=== PATIENT | female | born 1970 | race Caucasian/White ===

== ENCOUNTER 2019-06-13 12:34 | Emergency (ER) | payer SELFPAY ==
--- NOTE | 2019-06-13 12:55 | ER Document Report ---
ED Medical Screen (RME) - General Chief Complaint: Headache Stated Complaint: DIZZINESS, HEADACHE Time Seen by Provider: 06/13/19 12:50 Mode of Arrival: Ambulatory Information source: Patient Notes: 49-year-old female presented to ED for complaint of a headache to the back and the left side teeth hurt face hurts lightheaded flutters behind her eyes and feel weird. She states she has had a stroke in the past in 2012. She states she does have some left arm tingling as well. He states her past stroke was a hemorrhagic stroke. She states she did not require surgery. She states she had 2 TIAs and a stroke within a period of a month and a half. She also has elevated blood pressure and takes blood pressure medicine. 189/101 at home 144/84 in the emergency. Patient is alert oriented respirations regular nonlabored speaking in full sentences no facial droop noted. I have greeted and performed a rapid initial assessment of this patient. A comprehensive ED assessment and evaluation of the patient, analysis of test results and completion of medical decision making process will be conducted by an additional ED providers. Physical Exam - Vital signs Vitals: Temp Pulse Resp BP Pulse Ox 98.1 F 86 18 144/84 H 99 06/13/19 12:36 06/13/19 12:36 06/13/19 12:36 06/13/19 12:36 06/13/19 12:36 Course - Vital Signs Vital signs: Temp Pulse Resp BP Pulse Ox 98.1 F 86 18 144/84 H 99 06/13/19 12:36 06/13/19 12:36 06/13/19 12:36 06/13/19 12:36 06/13/19 12:36
--- NOTE | 2019-06-13 13:30 | RADIOLOGY REPORT (SQ) ---
EXAM DESCRIPTION: CT HEAD WITHOUT COMPLETED DATE/TIME: 06/13/2019 1:20 pm REASON FOR STUDY: head ache previous stroke COMPARISON: None. TECHNIQUE: Axial images acquired through the brain without intravenous contrast. Images reviewed wi th bone, brain and subdural windows. Additional sagittal and coronal reconstructions were generated. Images stored on PACS. All CT scanners at this facility use dose modulation, iterative reconstruction, and/or weight based d osing when appropriate to reduce radiation dose to as low as reasonably achievable (ALARA). [facility]: Dose Right [facility]: CareDose [facility]: Dose Right [facility]: Teradose 4D [facility]: Smart CellScape RADIATION DOSE: CT Rad equipment meets quality standard of care and radiation dose reduction techniq ues were employed. CTDIvol: 53.2 mGy. DLP: 991 mGy-cm. mGy. LIMITATIONS: None. FINDINGS: VENTRICLES: Normal size and contour. CEREBRUM: No masses. No hemorrhage. No midline shift. No evidence for acute infarction. Normal gra y/white matter differentiation. No areas of low density in the white matter. CEREBELLUM: No masses. No hemorrhage. No alteration of density. No evidence for acute infarction. EXTRAAXIAL SPACES: No fluid collections. No masses. ORBITS AND GLOBE: No intra- or extraconal masses. Normal contour of globe without masses. CALVARIUM: No fracture. PARANASAL SINUSES: No fluid or mucosal thickening. SOFT TISSUES: Left posterior scalp nodule. OTHER: No other significant finding. IMPRESSION: NORMAL BRAIN CT WITHOUT CONTRAST. EVIDENCE OF ACUTE STROKE: NO. COMMENT: Quality ID # [id number]: Final reports with documentation of one or more dose reduction techniques (e.g., Automated exposure control, adjustment of the mA and/or kV according to patient size, use of iterative reconstruction technique) TECHNICAL DOCUMENTATION: JOB ID: [id number] [employer]- All Rights Reserved Reading location - IP/workstation name: [email or web address]
[2019-06-13 13:33] LABS: ABSOLUTE MONOCYTES (AUTO) 0.2 10^3/uL (0.1-1.4); ABSOLUTE NEUT (AUTO) 2.8 10^3/uL (1.7-8.2); BASOPHILS % (AUTO) 0.6 % (0-2); EOSINOPHILS % (AUTO) 0.9 % (0-6); HEMATOCRIT 37.3 % (36.0-47.0); HEMOGLOBIN 12.6 g/dL (12.0-15.5); LYMPHOCYTES % (AUTO) 24.8 % (13-45); MEAN CORPUSCULAR HEMOGLOBIN 30.3 pg (27.0-33.4); MEAN CORPUSCULAR HGB CONC 33.7 g/dL (32.0-36.0); MEAN CORPUSCULAR VOLUME 90 fl (80-97); MONOCYTES % (AUTO) 5.9 % (3-13); PLATELET COUNT 306 10^3/uL (150-450); RED BLOOD COUNT 4.14 10^6/uL (3.72-5.28); RED CELL DISTRIBUTION WIDTH 14.5 % (11.5-14.0); SEGMENTED NEUTROPHILS % (AUTO) 67.8 % (42-78); TOTAL CELLS COUNTED % (AUTO) 100 %; WHITE BLOOD COUNT 4.1 10^3/uL (4.0-10.5)
[2019-06-13 13:39] LABS: PROTHROMBIN TIME 13.2 SEC (11.4-15.4)
[2019-06-13 13:40] LABS: PARTIAL THROMBOPLASTIN TIME 29.3 SEC (23.5-35.8)
[2019-06-13 13:52] LABS: ALBUMIN 4.5 g/dL (3.5-5.0); ALKALINE PHOSPHATASE 99 U/L (38-126); ANION GAP 8 (5-19); ASPARTATE AMINO TRANSFERASE 40 U/L (14-36); BILIRUBIN,DIRECT 0.2 mg/dL (0.0-0.4); BILIRUBIN,TOTAL 0.5 mg/dL (0.2-1.3); BLOOD UREA NITROGEN 11 mg/dL (7-20); CALCIUM 9.6 mg/dL (8.4-10.2); CARBON DIOXIDE 28 mmol/L (22-30); CHLORIDE 103 mmol/L (98-107); GLUCOSE 97 mg/dL (75-110); POTASSIUM 4.2 mmol/L (3.6-5.0); TOTAL PROTEIN 8.3 g/dL (6.3-8.2)
--- NOTE | 2019-06-13 15:42 | ER Document Report ---
ED General - General Chief Complaint: Headache Stated Complaint: DIZZINESS, HEADACHE Time Seen by Provider: 06/13/19 12:50 Mode of Arrival: Ambulatory - [facility] Notes: Patient is a 49-year-old female with history of TIA, CVA, hypertension who presents complaining of having a mild posterior headache that began yesterday, not constant, with elevated blood pressure 180s systolic over 100s diastolic prior to arrival. Patient states that she did have some spots in her vision at that time. Patient had this checked at the pharmacy electronic blood pressure cuff. Patient has been having nasal congestion and discharge as well as sinus congestion and is not sure if this is related. Patient states that she felt a little anxious when her blood pressure was elevated and she felt a very light twinge to the left arm, but no numbness associated. Patient states that quickly resolved. Patient states that she currently is feeling much better and her headache is "barely there." She has been taking Motrin today. This is not the worst headache of her life and did not start as a thunderclap. She takes a baby aspirin daily. Patient states that she has been ambulating since then without any difficulties. Patient states that this did not feel like a TIA or CVA that she has experienced in the past. She did take her blood pressure medicine today. Denies any fever, head injury, neck pain, changes in sp eech/mentation/hearing, sore throat, chest pain, palpitations, syncope, cough, shortness of breath, wheeze, dyspnea, abdominal pain, nausea/vomiting/diarrhea, urinary retention, dysuria, hematuria, loss of control of bowel or bladder, numbness/tingling, saddle anesthesia, muscle paralysis/weakness, or rash. - Related Data Home Medications: 81 mg Aspirin. Losartan. Michelle. Protonix. Lorazepam PRN Past Medical History - General Information source: Patient - Social History Smoking Status: Current Every Day Smoker Frequency of alcohol use: Social Drug Abuse: None Family History: Reviewed & Not Pertinent Patient has suicidal ideation: No Patient has homicidal ideation: No - Past Medical History Cardiac Medical History: Reports: Hx Hypertension GI Medical History: Reports: Hx Gastroesophageal Reflux Disease Past Surgical History: Reports: Hx Gynecologic Surgery, Hx Orthopedic Surgery - L knee Review of Systems - Review of Systems -: Yes All other systems reviewed and negative Physical Exam - Vital signs Vitals: Temp Pulse Resp BP Pulse Ox 98.1 F 86 18 144/84 H 99 06/13/19 12:36 06/13/19 12:36 06/13/19 12:36 06/13/19 12:36 06/13/19 12:36 - Notes Notes: PHYSICAL EXAMINATION: GENERAL: Well-appearing, well-nourished and in no acute distress. A&Ox4. Answers questions appropriately. HEAD: Atraumatic, normocephalic. Non-tender. EYES: Pupils equal round and reactive to light, extraocular movements intact, sclera anicteric, conjunctiva are normal. No nystagmus. vis patel intact. ENT: EAC clear b/l. TM's intact b/l without erythema, fluid, or perforation. Nares patent and without discharge. oropharynx clear without exudates. No tonsilar hypertrophy or erythema. Moist mucous membranes. + mild b/l maxillary sinus tenderness. No dental tenderness. No tongue protrusion. NECK: Normal range of motion, supple without lymphadenopathy. No rigidity/meningismus. No midline tenderness. LUNGS: Breath sounds clear to auscultation bilaterally and equal. No wheezes rales or rhonchi. HEART: Regular rate and rhythm without murmurs, rubs, gallops. ABDOMEN: Soft, nontender, nondistended abdomen. No guarding, no rebound. Normal bowel sounds present. No CVA tenderness bilaterally. Musculoskeletal: Ext b/l: FROM to passive/active. Strength 5+/5. No deficits noted. No bony tenderness of extremities. Extremities: No cyanosis, clubbing, or edema b/l. Peripheral pulses 2+. Capillary refill less than 2 seconds. NEUROLOGICAL: NIH 0. GCS 15. Cranial nerves grossly intact. Normal speech, normal gait. Normal sensory, motor exams. Reflexes 2+ b/l. NENA's negative. Pronator drift negative. Heel/brewer, finger/nose wnl. Romberg neg. PSYCH: Normal mood, normal affect. SKIN: Warm, Dry, normal turgor, no rashes or lesions noted. Course - Re-evaluation Re-evalutation: 06/13/19 15:40 Patient is an afebrile, well-hydrated, 49-year-old female who presents to the ED with elevated BP and ROSE, suspect benign. She also has acute sinusitis, suspect viral that could be attributing to symptoms. Vitals are acceptable without any significant tachycardia, tachypnea, or hypoxia. PE is otherwise unremarkable for any focal neurological deficits. NIH 0, GCS 15, cranial nerves grossly intact. Labs and Ct scan unremarkable. No other labs or imaging warranted at this time based on H&P. Pt had improvement of her ROSE without any meds needed here in the ED. Patient states that she is feeling much better and would like to go home. Her BP has not been significantly elevated throughout her stay. She is nontoxic-appearing and is tolerating p.o. without any difficulties. I did review the risk/benefit of admission vs obs at home for ?TIA. Pt states that she is feeling better, does not believe this to be a TIA/CVA, and can anastacia tor at home. Strict return precautions reviewed and understood. Her H&P is not consistent for true TIA at this time as well w/o any focal deficits, etc. Low suspicion for any acute glaucoma, temporal arteritis, meningitis, intracranial hemorrhage, ischemic stroke, or fracture at this time. Patient is aware that this condition can change from initial presentation and that she needs to monitor symptoms closely for any acute changes. Recheck with your PCM/neurologist in 2-3 days. Return to the ED with any worsening/concerning symptoms otherwise as reviewed in discharge. Patient is in agreement. - Vital Signs Vital signs: Temp Pulse Resp BP Pulse Ox 98.1 F 86 18 144/84 H 99 06/13/19 12:36 06/13/19 12:36 06/13/19 12:36 06/13/19 12:36 06/13/19 12:36 - Laboratory Result Diagrams: 06/13/19 13:07 06/13/19 13:07 Laboratory results interpreted by me: 06/13/19 06/13/19 13:07 13:07 RDW 14.5 H AST 40 H Total Protein 8.3 H Discharge - Discharge Clinical Impression: Elevated blood pressure reading Acute sinusitis Qualifiers: Sinusitis location: maxillary Recurrence: non-recurrent Qualified Code(s): J01.00 - Acute maxillary sinusitis, unspecified Headache Qualifiers: Headache type: unspecified Headache chronicity pattern: acute headache Intractability: not intractable Qualified Code(s): R51 - Headache Condition: Stable Disposition: HOME, SELF-CARE Instructions: Headache ([facility]) Additional Instructions: Rest, Ice/cool compress Tylenol as needed Light stretches daily [id number] cold medications as reviewed Strength exercises as able Moist heat and massage may help F/u with your PCP in 2-3 days for a recheck Consider consult(s) with Neurology for ongoing/worsening symptoms Return to the ED with any worsening symptoms and/or development of fever, headache, changes in behavior/mentation/vision/speech, chest pain, palpitations, syncope, shortness of breath, trouble breathing, abdominal pain, n/v/d, blood in stool/urine, loss of control of bowel/bladder, urinary retention, muscle weakness/paralysis, saddle anesthesia, numbness/tingling, or other worsening symptoms that are concerning to you. Forms: Elevated Blood Pressure Referrals: NISHANT GUADALUPE MD [COMMUNITY BASED STAFF] - Follow up as needed
[2019-06-13 16:20] VITALS: BP 141/83
== END 2019-06-13 16:18 | disposition home or self-care (01) ==
LOC: ER 12:34
DX: J01.00 Acute maxillary sinusitis, unspecified (principal); I10 Essential (primary) hypertension; R51 Headache; R42 Dizziness and giddiness; R09.81 Nasal congestion; R09.89 Other specified symptoms and signs involving the circulatory and respiratory systems; F41.9 Anxiety disorder, unspecified; R20.2 Paresthesia of skin; Z79.82 Long term (current) use of aspirin; Z79.899 Other long term (current) drug therapy; F17.200 Nicotine dependence, unspecified, uncomplicated
CPT/HCPCS: 36415; 70450; 80053; 85025; 85610; 85730; 99284